=== PATIENT | female | born 1960 | race Caucasian/White ===

== ENCOUNTER 2016-12-31 03:20 | Day surgery (SDC) | payer OTHER ==
[2016-12-31] MEDS ORDERED: NS 0.9% 1000 ML* 1,000 ML IV ONE ×2 (03:58→11:17)
[2016-12-31] MEDS ORDERED: Morphine INJ* 4 MG/ML 1 ML CARPUJECT IV ONE ×2 (04:30→11:17)
[2016-12-31] MEDS ORDERED: Ondansetron INJ* 2 MG/ML VIAL IV ONE (04:30)
[2016-12-31 04:37] LABS: Hematocrit 43 % (35-47); Hemoglobin 14.6 g/dl (12.0-16.0); Mean Corpuscular HGB Conc 34 g/dl (31-36); Mean Corpuscular Hemoglobin 31 pg (27-31); Mean Corpuscular Volume 90 fL (80-97); Mean Platelet Volume 10 um3 (7.4-10.4); Red Blood Count 4.76 10^6/ul (4.0-5.4); Red Cell Distribution Width 13 % (10.5-15); White Blood Count 12.5 10^3/ul (3.5-10.8)
[2016-12-31 04:46] LABS: ALT 44 U/L (7-52); Albumin 4.3 g/dL (3.2-5.2); Alkaline Phosphatase 47 U/L (34-104); BUN/Creatinine Ratio 17.1 (8-20); Blood Urea Nitrogen 14 mg/dL (6-24); C Reactive Protein 5.75 mg/L (< 5.00); CO2 Carbon Dioxide 22 mmol/L (22-32); Calcium 9.2 mg/dL (8.6-10.3); Chloride 103 mmol/L (101-111); EGFR African American 92.4 (>60); EGFR Non-African American 71.9 (>60); Globulin 2.7 g/dL (2-4); Glucose 122 mg/dL (70-100); Sodium 137 mmol/L (133-145)
[2016-12-31 04:53] LABS: Anion Gap 12 mmol/L (2-11)
[2016-12-31] MEDS ORDERED: Morphine INJ* 2 MG/ML 1 ML CARPUJECT IV ONE ×2 (05:17→06:37)
[2016-12-31 05:28] LABS: Urine Bilirubin Negative (Negative); Urine Glucose Negative (Negative); Urine Nitrite Negative (Negative)
--- NOTE | 2016-12-31 07:56 | RAD ---
HISTORY: History of kidney stones, left flank pain COMPARISONS: None VIEWS: Frontal views of the abdomen. FINDINGS: BOWEL: There is a nonobstructive bowel gas pattern. There is large amount stool throughout the colon CALCULI: There are no abnormal calculi, though evaluation is limited by overlying bowel. BONES AND SOFT TISSUES: Mild degenerative changes are noted. OTHER FINDINGS: The lung bases are clear. There is no subphrenic gas. IMPRESSION: NONOBSTRUCTIVE BOWEL GAS PATTERN. LARGE AMOUNT OF STOOL THROUGHOUT THE COLON. NO APPRECIABLE NEPHROLITHIASIS.
--- NOTE | 2016-12-31 09:12 | RAD ---
INDICATION: Left flank pain COMPARISON: KUB December 31, 2016 TECHNIQUE: Longitudinal and transverse scans of the left kidney were obtained. FINDINGS: Left kidney: The left kidney is normal in size and echogenicity. No masses or definitive calculi are seen. There is mild left-sided hydronephrosis. The left kidney measures 11.0 x 5.7 x 4.5 cm. Other: There is nonvisualization of the left ureteral jet IMPRESSION: MILD LEFT-SIDED HYDRONEPHROSIS. NONVISUALIZATION LEFT URETERAL JET.
--- NOTE | 2016-12-31 10:53 | ED ---
Miguel Angel Bustillos Rebecca, scribed for Swati Clement MD on 12/31/16 at 0558 . Abdominal Pain/Female - HPI Summary HPI Summary: Pt is a 56 y/o F who presents to ED c/o L flank pain. Pain began yesterday at approximately 2230 and is currently moderate, ranked 6/10. Sx aggravated and alleviated by nothing. Additionally c/o nausea and diffuse abdominal pressure, described as "almost like when you have to go to the bathroom." Denies abd pain , V, hematuria, dysuria, fever. PMHx kidney stones 1x while in [place] - current pain is similar to incident of kidney stones. Pt initially thought she had the "stomach bug" because everything feels "awful." Last BM was a few hours prior to evaluation. Pt reports that Dr. Espinoza recently had an US done which revealed multiple kidney stones on both sides that the pt reports should be small enough to pass per Dr. Espinoza. Confirms that her will be able to bring her home after pain medication in the ED, and that she believes pain can be handled with medications at home. Pt states that she has a genetic defect that makes her prone to kidney stones (Medullary sponge kidney). Pt reports that she had a very comprehensive workup after the initial finding of kidney stones, but she did not have her first kidney stone until she was 56 yrs old, in Mar 2016. Pt states if today's episode is a kidney stone this will be only the second time with kidney stones. Allergy to NSAIDS. - History of Current Complaint Chief Complaint: EDFlankPain Stated Complaint: LEFT FLANK PAIN Time Seen by Provider: 12/31/16 03:58 Hx Obtained From: Patient Onset/Duration: Lasting Hours, Still Present Timing: Constant Severity Initially: Moderate Severity Currently: Moderate Pain Intensity: 6 Pain Scale Used: 0-10 Numeric Location: Flank - Left Radiates: No Character: Sharp Aggravating Factor(s): Nothing Alleviating Factor(s): Nothing Associated Signs and Symptoms: Positive: Nausea, Other: - Diffuse abdominal pressure. Negative: Urinary Symptoms, Vomiting Simlar Episode/Dx as:: Previous kidney stone Allergies/Adverse Reactions: Allergies Allergy/AdvReac Type Severity Reaction Status Date / Time Ibuprofen Allergy Unknown Verified 11/22/14 13:15 Reaction Details PMH/Surg Hx/FS Hx/Imm Hx Previously Healthy: No Endocrine/Hematology History: Reports: Other Endocrine/Hematological Disorders - Hx hypoglycemia History: Reports: Hx Kidney Stones, Other Problems/Disorders - Hx Medullary sponge kidney disease - Cancer History Hx Chemotherapy: No Hx Radiation Therapy: No - Surgical History Surgery Procedure, Year, and Place: no surg hx Infectious Disease History: No Infectious Disease History: Denies: Traveled Outside the [place] in Last 30 Days - Family History Known Family History: Positive: Other - Kidney stones in a sibling, not in her parents - Social History Alcohol Use: Rare Substance Use Type: Reports: None Smoking Status (MU): Former Smoker Review of Systems Constitutional: Negative Cardiovascular: Negative Respiratory: Negative Positive: Other - Diffuse abdominal pressure. Negative: Vomiting Positive: pain - Left flank pain. Negative: dysuria, hematuria Skin: Negative Neurological: Negative Psychological: Normal All Other Systems Reviewed And Are Negative: Yes Physical Exam Triage Information Reviewed: Yes Vital Signs On Initial Exam: Initial Vitals Temp Pulse Resp BP Pulse Ox 97.8 F 74 18 160/84 97 12/31/16 03:27 12/31/16 03:27 12/31/16 03:27 12/31/16 03:27 12/31/16 03:27 Vital Signs Reviewed: Yes Appearance: Positive: Well-Appearing, Well-Nourished, Pain Distress Skin: Positive: Warm, Skin Color Reflects Adequate Perfusion Head/Face: Positive: Temporal Artery Tenderness Eyes: Positive: Conjunctiva Clear ENT: Positive: Normal ENT inspection Neck: Positive: Supple Respiratory/Lung Sounds: Positive: Clear to Auscultation, Breath Sounds Present , Other - No respiratory distress Cardiovascular: Positive: RRR, Pulses are Symmetrical in both Upper and Lower Extremities, Other - Brisk capillary refill. Negative: Murmur Abdomen Description: Positive: Nontender, No Organomegaly, Soft, CVA Tenderness (L). Negative: CVA Tenderness (R), Distended, Guarding, Hepatomegaly, McBurney' s Point Tenderness, Peritoneal Signs, Pulsatile Mass, Splenomegaly Bowel Sounds: Positive: Present Musculoskeletal: Positive: Strength/ROM Intact, Other - L flank tenderness Neurological: Positive: Sensory/Motor Intact, Alert, Oriented to Person Place, Time, Facial Symmetry, Speech Normal Psychiatric: Positive: Normal - [place] Coma Scale Coma Scale Total: 15 Diagnostics - Vital Signs Vital Signs Temp Pulse Resp BP Pulse Ox 12/31/16 05:29 16 10/06/17 05:14 72 18 92 12/31/16 05:11 117/74 12/31/16 04:40 16 12/31/16 04:30 73 16 130/67 92 12/31/16 04:00 75 19 137/69 92 12/31/16 03:45 68 95 12/31/16 03:44 143/68 12/31/16 03:27 97.8 F 74 18 160/84 97 - Laboratory Lab Results: Lab Results 12/31/16 12/31/16 12/31/16 Range/Units 04:20 04:20 04:20 WBC 12.5 H (3.5-10.8) 10^3/ul RBC 4.76 (4.0-5.4) 10^6/ul Hgb 14.6 (12.0-16.0) g/dl Hct 43 (35-47) % MCV 90 (80-97) fL MCH 31 (27-31) pg MCHC 34 (31-36) g/dl RDW 13 (10.5-15) % Plt Count 192 (150-450) 10^3/ul MPV 10 (7.4-10.4) um3 Neut % (Auto) 70.1 (38-83) % Lymph % (Auto) 21.2 L (25-47) % Scurry % (Auto) 6.6 (1-9) % Eos % (Auto) 1.5 (0-6) % Baso % (Auto) 0.6 (0-2) % Absolute Neuts (auto) 8.8 H (1.5-7.7) 10^3/ul Absolute Lymphs (auto) 2.6 (1.0-4.8) 10^3/ul Absolute Monos (auto) 0.8 (0-0.8) 10^3/ul Absolute Eos (auto) 0.2 (0-0.6) 10^3/ul Absolute Basos (auto) 0.1 (0-0.2) 10^3/ul Absolute Nucleated RBC 0.01 10^3/ul Nucleated RBC % 0.1 Sodium 137 (133-145) mmol/L Potassium TNP Chloride 103 (101-111) mmol/L Carbon Dioxide 22 (22-32) mmol/L Anion Gap 12 H (2-11) mmol/L BUN 14 (6-24) mg/dL Creatinine 0.82 (0.51-0.95) mg/dL Est GFR ( Amer) 92.4 (>60) Est GFR (Non-Af Amer) 71.9 (>60) BUN/Creatinine Ratio 17.1 (8-20) Glucose 122 H (70-100) mg/dL Lactic Acid < 0.3 L (0.5-2.0) mmol/L Calcium 9.2 (8.6-10.3) mg/dL Total Bilirubin 0.50 (0.2-1.0) mg/dL AST TNP ALT 44 (7-52) U/L Alkaline Phosphatase 47 (34-104) U/L C-Reactive Protein 5.75 H (< 5.00) mg/L Total Protein 7.0 (6.4-8.9) g/dL Albumin 4.3 (3.2-5.2) g/dL Globulin 2.7 (2-4) g/dL Albumin/Globulin Ratio 1.6 (1-3) Urine Color Urine Appearance Urine pH (5-9) Ur Specific [place] (1.010-1.030) Urine Protein (Negative) Urine Ketones (Negative) Urine Blood (Negative) Urine Nitrate (Negative) Urine Bilirubin (Negative) Urine Urobilinogen (Negative) Ur Leukocyte Esterase (Negative) Urine Glucose (Negative) 12/31/16 Range/Units 05:10 WBC (3.5-10.8) 10^3/ul RBC (4.0-5.4) 10^6/ul Hgb (12.0-16.0) g/dl Hct (35-47) % MCV (80-97) fL MCH (27-31) pg MCHC (31-36) g/dl RDW (10.5-15) % Plt Count (150-450) 10^3/ul MPV (7.4-10.4) um3 Neut % (Auto) (38-83) % Lymph % (Auto) (25-47) % [place] % (Auto) (1-9) % Eos % (Auto) (0-6) % Baso % (Auto) (0-2) % Absolute Neuts (auto) (1.5-7.7) 10^3/ul Absolute Lymphs (auto) (1.0-4.8) 10^3/ul Absolute Monos (auto) (0-0.8) 10^3/ul Absolute Eos (auto) (0-0.6) 10^3/ul Absolute Basos (auto) (0-0.2) 10^3/ul Absolute Nucleated RBC 10^3/ul Nucleated RBC % Sodium (133-145) mmol/L Potassium Chloride (101-111) mmol/L Carbon Dioxide (22-32) mmol/L Anion Gap (2-11) mmol/L BUN (6-24) mg/dL Creatinine (0.51-0.95) mg/dL Est GFR ( Amer) (>60) Est GFR (Non-Af Amer) (>60) BUN/Creatinine Ratio (8-20) Glucose (70-100) mg/dL Lactic Acid (0.5-2.0) mmol/L Calcium (8.6-10.3) mg/dL Total Bilirubin (0.2-1.0) mg/dL AST ALT (7-52) U/L Alkaline Phosphatase (34-104) U/L C-Reactive Protein (< 5.00) mg/L Total Protein (6.4-8.9) g/dL Albumin (3.2-5.2) g/dL Globulin (2-4) g/dL Albumin/Globulin Ratio (1-3) Urine Color Straw Urine Appearance Clear Urine pH 6.0 (5-9) Ur Specific [place] 1.008 L (1.010-1.030) Urine Protein Negative (Negative) Urine Ketones Negative (Negative) Urine Blood Negative (Negative) Urine Nitrate Negative (Negative) Urine Bilirubin Negative (Negative) Urine Urobilinogen Negative (Negative) Ur Leukocyte Esterase Negative (Negative) Urine Glucose Negative (Negative) Result Diagrams: 12/31/16 04:20 12/31/16 09:50 Lab Statement: Any lab studies that have been ordered have been reviewed, and results considered in the medical decision making process. - Radiology KUB Xray Interpretation: Positive (See Comments) - No obvious stones. Multiple phlebitis. Stool in colon. Radiology Interpretation Completed By: ED Physician - Ultrasound No standard instances Ultrasound Interpretation Completed By: Radiologist - Abdomen US: Awaiting radiologist interpretation. See [facility]. Re-Evaluation - Re-Evaluation First Eval Re-Evaluation Time: 05:53 Change: Improved Comment: Second dose of morphine improved sx. Abdominal Pain Fem Course/Dx - Course Course Of Treatment: Pt is a 56 y/o F who presents to ED c/o L flank pain. Pain began yesterday at approximately 2230 and is currently moderate, ranked 6/10. Sx aggravated and alleviated by nothing. Additionally c/o nausea and diffuse abdominal pressure, described as "almost like when you have to go to the bathroom." Denies V, hematuria, dysuria. PMHx kidney stones 1x while in [place] - current pain is similar to incident of kidney stones. Pt initially thought she had the "stomach bug" because everything feels "awful." Last BM was a few hours prior to evaluation. Pt reports that Dr. Espinoza recently had an US done which revealed multiple kidney stones on both sides that the pt reports should be small enough to pass. Confirms that her will be able to bring her home and that she believes pain can be handled with medications at home. Pt states that she has a genetic defect that makes her prone to kidney stones ( Medullary sponge kidney). Pt reports that she had a very comprehensive workup after the initial finding of kidney stones. Allergy to NSAIDS. In the ED course , pt received morphine and zofran. Pt will be signed out, pending dispo, awaiting US. Patient medication reviewed this visit. Allergies noted. Elevated BP noted. - Diagnoses Differential Diagnosis: Positive: Pancreatitis, Renal Colic, Urinary Tract Infection Provider Diagnoses: Hydronephrosis determined by ultrasound, Congenital medullary sponge kidney Discharge - Discharge Plan Condition: Stable Disposition: OTHER Discharge Disposition Comment: Pt will be signed out to Dr. Johnson [phone],pending disposition, awaiting US. Referrals: Neal Blackmon MD [Primary Care Provider] - Saji Espinoza MD [Medical Doctor] - The documentation as recorded by the Miguel Angel guadarrama Rebecca accurately reflects the service I personally performed and the decisions made by me, Swati Clement MD.
--- NOTE | 2016-12-31 12:10 | RAD ---
CLINICAL HISTORY: Left flank pain COMPARISON: Pelvic ultrasound dated June 17, 2016, pelvic ultrasound dated November 16, 2013, abdominal ultrasound dated December 31, 2016 TECHNIQUE: Multiple contiguous axial CT scans were obtained of the abdomen and pelvis, without intravenous contrast enhancement. Coronal and sagittal multiplanar reformations are submitted for review. Oral contrast was not administered. FINDINGS: The study is limited by the lack of intravenous contrast. This limits evaluation of the solid organs and vasculature. LUNG BASES: The lung bases are clear. LIVER: The liver is diffusely low in attenuation compared to the spleen. Liver measures 21 cm in long axis. There are no focal hepatic parenchymal masses. BILE DUCTS: There is no intrahepatic or extrahepatic biliary dilatation. GALLBLADDER: The gallbladder is normal, without pericholecystic inflammatory change. PANCREAS: The pancreas is normal, without mass or ductal dilatation. SPLEEN: Normal in size and appearance. UPPER GI TRACT: Evaluation of the gastrointestinal tract is limited by incomplete gastric distention. The upper GI tract is unremarkable. SMALL BOWEL AND MESENTERY: The small bowel is normal in contour, course, and caliber. There is no obstruction or dilatation. COLON: The colon is normal in contour, course, caliber. There is no pericolonic inflammatory change. ADRENALS: Normal bilaterally. KIDNEYS: There are multiple right renal calyceal stones measuring up to 0.5 cm in size. There is perinephric stranding on the left with mild pelviectasis and hydroureter. There is a 0.4 cm calculus of the left UVJ. BLADDER: The bladder is incompletely distended. As noted above, there is a 0.4 cm calculus of the left UVJ. PELVIC ORGANS: There is a 5.6 cm simple cyst of the left ovary. This appears to correspond to a cyst noted on ultrasound dated June 17, 2016 and November 16, 2013 AORTA: The aorta is normal. IVC: Unremarkable LYMPH NODES: There is no lymphadenopathy by size criteria. ABDOMINAL WALL: There is no evidence for abdominal wall hernia. BONES AND SOFT TISSUES: Unremarkable OTHER: None IMPRESSION: 1. BILATERALLY NEPHROLITHIASIS, INCLUDING A 0.4 CM CALCULUS OF THE LEFT UVJ WITH LEFT HYDRONEPHROSIS AND PERINEPHRIC STRANDING. 2. 5.6 CM LEFT OVARIAN CYST, PERSISTENT FROM MULTIPLE PRIOR EXAMINATIONS. GIVEN THE PERSISTENCE, RECOMMEND CONSIDERATION OF GYNECOLOGIC CONSULTATION. 3. HEPATOMEGALY WITH FATTY INFILTRATION OF LIVER.
[2016-12-31 15:28] VITALS: BP 106/65
--- NOTE | 2016-12-31 20:02 | ED ---
Mychal Bustillos Angela, александрed for Gianluca Johnson MD on 12/31/16 at 0826 . Progress - Progress Note Progress Note: Pt is a 56 y/o female presenting to [facility] c/o left flank pain that began yesterday at 2230. Additionally pt c/o nausea and diffuse abdominal pressure, described as "almost like when you have to go to the bathroom." PMHx kidney stones (once) - current pain is similar to incident of kidney stones. This pt was signed out from Dr. Clement, pending disposition, awaiting US. Dr Espinoza asked me to get a KUB and if a stone is seen then we will stop, but if not seen then he needs a CT. Will call him back after. 1120 - Results/Orders Results/Orders: US abdomen (as ready by the radiologist): IMPRESSION: Mild left-sided hydronephrosis. Nonvisualization left ureteral jet. ED physician has reviewed this radiology report and agrees. CT abdomen/pelvis (as ready by the radiologist): IMPRESSION: 1. Bilaterally nephrolithiasis, including a 0.4 cm calculus of the left UVJ with left hydronephrosis and perinephric stranding. 2. 5.6 cm left ovarian cyst, persistent from multiple prior examinations. Given the persistence, recommend consideration of gynecologic consultation. 3. Hepatomegaly with fatty infiltration of liver. ED physician has reviewed this radiology report and agrees. Course/Dx - Diagnoses Provider Diagnoses: Hydronephrosis - Provider Notifications Discussed Care Of Patient With: Saji Espinoza Time Discussed With Above Provider: 11:17 Instructed by Provider To: Other - I discussed the pt's case with Dr. Espinoza. The documentation as recorded by the Mychal guadarrama Angela accurately reflects the service I personally performed and the decisions made by me, Gianluca Johnson MD.
== END 2016-12-31 14:08 ==
LOC: ED 03:20 → OR 14:08
PROVIDERS: ATTEND Urology
DX: N13.2 Hydronephrosis with renal and ureteral calculous obstruction (principal); R10.32 Left lower quadrant pain; N83.202 Unspecified ovarian cyst, left side; K76.0 Fatty (change of) liver, not elsewhere classified
CPT/HCPCS: 36415; 74000; 74176; 76705; 80053; 81003; 83605; 85025; 86140; 96374; 96375; 99284; J2270; J2405